=== PATIENT | female | born 1945 | race Caucasian/White ===

== ENCOUNTER 2024-12-16 15:35 | Emergency (ER) | payer MEDICARE ==
[2024-12-16 16:58] LABS: BASOPHILS ABSOLUTE AUTO 0.1 K/mm3 (0.0-0.2); BASOPHILS PERCENT AUTO 0.6 % (0.0-1.0); EOSINOPHILS ABSOLUTE AUTO 0.2 K/mm3 (0.0-0.4); EOSINOPHILS PERCENT AUTO 2.2 % (0.0-6.0); HEMATOCRIT 37.3 % (37.0-47.0); HEMOGLOBIN 12.5 gm/dl (12.0-16.0); IMMATURE GRAN ABSOLUTE AUTO 0.04 K/mm3 (0.00-0.05); IMMATURE GRAN PERCENT AUTO 0.5 % (0.0-0.4); LYMPHOCYTES ABSOLUTE AUTO 2.1 K/mm3 (1.0-4.8); LYMPHOCYTES PERCENT AUTO 26.4 % (24.0-44.0); MEAN CORPUSCULAR HEMOGLOBIN 27.2 pg (28.0-32.0); MEAN CORPUSCULAR HGB CONC 33.5 g/dl (32.0-36.0); MEAN CORPUSCULAR VOLUME 81.3 fl (83.0-99.0); MEAN PLATELET VOLUME 9.2 fl (9.4-12.3); MONOCYTES ABSOLUTE AUTO 0.7 K/mm3 (0.0-0.8); MONOCYTES PERCENT AUTO 9.1 % (0.0-8.0); NEUTROPHILS ABSOLUTE AUTO 4.9 K/mm3 (1.8-7.7); NEUTROPHILS PERCENT AUTO 61.2 % (41.0-71.0); PLATELET COUNT,PLT 400 K/mm3 (150-400); RED BLOOD CELL COUNT 4.59 M/mm3 (4.10-5.30); WHITE BLOOD CELL COUNT,WBC 8.06 K/mm3 (3.9-11.3)
[2024-12-16] MEDS: Alum Hydrox/Mag Hydrox/Simeth 30 ML, Lidocaine 2% 15 ML PO ONE (17:23)
[2024-12-16] MEDS: Famotidine 20 MG/2 ML SDV IVPUSH ONE (17:23)
[2024-12-16 17:32] LABS: A/G RATIO 0.9 (1-2); ALBUMIN 3.4 g/dl (3.4-5.0); BILIRUBIN TOTAL 0.6 mg/dL (0.2-1.0); BUN/CREATININE RATIO 15.5 (14-18); CALCIUM 9.9 mg/dL (8.5-10.1); CREATININE 1.1 mg/dL (0.55-1.02); EST CRCL DRUG DOSING (CG) 40.09 mL/min; PROTEIN TOTAL,TP 7.4 g/dl (6.4-8.2)
[2024-12-16] MEDS: Iopamidol 612 MG/ML 100 ML Bottle IVPUSH ONE (18:00)
[2024-12-16] MEDS: Sodium Chloride 0.9% 10 ML Syringe FLUSH ONE (18:00)
[2024-12-16 18:03] LABS: C-REACTIVE PROTEIN 0.62 mg/dL (<0.30)
[2024-12-16 18:07] LABS: ANION GAP 14.6 (5-15)
[2024-12-16 18:08] LABS: POTASSIUM,K 2.6 mEq/L (3.5-5.1)
[2024-12-16] MEDS: Potassium Chloride 10 MEQ in Premix Bag 1 BAG IV SCH (18:40)
[2024-12-16] MEDS: Sodium Chloride 0.9% 1,000 ML IV ONE (18:41)
[2024-12-16] MEDS: Potassium Chloride 20 MEQ Tab.ER PO ONE (18:41)
[2024-12-16] MEDS: Sodium Chloride 0.9% 1,000 ML ONE (20:05)
[2024-12-16 20:09] LABS: APPEARANCE,URINE CLEAR (Clear); BILIRUBIN,URINE NEGATIVE (Negative); COLOR,URINE YELLOW (Yellow); GLUCOSE,URINE NEGATIVE (Negative); KETONES,URINE TRACE (Negative); LEUKOCYTE ESTERASE,URINE NEGATIVE (Negative); NITRITE,URINE NEGATIVE (Negative); OCCULT BLOOD,URINE TRACE-INTACT (Negative); PROTEIN,URINE 1+ (Negative); UROBILINOGEN,URINE 0.2 (0.2-1.0)
[2024-12-16 20:23] LABS: BACTERIA,URINE FEW /hpf (FEW); MUCUS,URINE MODERATE /hpf (FEW); RBC,URINE 0-5 /hpf (0-5); WBC,URINE 0-5 /hpf (0-5); YEAST,URINE FEW (NOT SEEN)
[2024-12-16] MEDS: Sodium Chloride 0.9% 1,000 ML IV SCH (20:58)
== END 2024-12-16 22:45 | disposition home or self-care (01) ==
LOC: JD.ED 15:35
DX: K59.00 Constipation, unspecified (principal); I10 Essential (primary) hypertension; Z79.899 Other long term (current) drug therapy
CPT/HCPCS: 36415; 74177; 74177-26; 80053; 81001; 83690; 84484; 85025; 86140; 93005; 96365; 96366; 96375; 99284-25; A9270-GY; J3480; J7030; Q9967